=== PATIENT | male | born 1955 | race Caucasian/White ===

== ENCOUNTER 2016-11-05 14:10 | Inpatient (IN) | payer OTHER ==
--- NOTE | ~2016-11-05 | CO ---
Unit #: [id number] #: [id number] Patient: SIMON ARSHAD [id number] [address] [place], [place] [address] [id number] I MR#: [id number] NAME: SIMON ARSHAD. ROOM: 228 Age: 61 Sex: M Admission Date: 11/05/2016 : 1955 Attending Physician: Kathleen Pineda M.D. Primary Care Physician: Hosea Phelan M.D. CONSULTATION REPORT REASON FOR CONSULTATION Lower extremity cellulitis. HISTORY OF PRESENT ILLNESS This is a 61-year-old male that is known to our service for a similar presentation in July of 2016. The patient reports he was doing well up until about Thursday evening when he began with fever after his was shaving his foot and trying to take off skin. The patient reports the next morning he awoke with left lower extremity erythema, pain and difficulty with ambulation. The patient came to the hospital as he continued to feel poorly and he was admitted for cellulitis. The patient was started on vancomycin and Infectious Disease was asked to evaluate. PAST MEDICAL HISTORY Hypertension, iron deficiency anemia. He denies to me any other history including diabetes. The patient appears to have been seen in the past for pancytopenia and thrombocytopenia and his platelets are again low this admission. PAST SURGICAL HISTORY Exploratory lap secondary to small bowel obstruction, appendectomy. SOCIAL HISTORY The patient denies any alcohol or tobacco abuse. ALLERGIES Possible penicillin allergy; however, the patient has taken Keflex and Kefzol in the past without difficulty. MEDICATION The patient is currently on vancomycin. For other medications, please refer to patient's MAR. REVIEW OF SYSTEMS The patient reports fever and chills at home with development of left lower extremity pain, erythema, swelling and difficulty with ambulation. He denies any shortness of breath, chest pain, nausea, vomiting, diarrhea or any UTI signs or symptoms. PHYSICAL EXAMINATION GENERAL APPEARANCE: This no apparent distress male sitting in a chair comfortably. VITAL SIGNS: Temperature 97.7 with no documented fever this admission. Pulse 70. Blood pressure 143/55. Respiratory rate 16. Unit #: [id number] #: [id number] Patient: SIMON ARSHAD HEENT: His pupils are equal. NECK: Supple. CARDIOVASCULAR: S1, S2. Regular rate and rhythm. PULMONARY: Clear to auscultation bilaterally with no wheezes or rhonchi noted. ABDOMEN: Positive bowel sounds. Soft and nontender. EXTREMITIES: The left lower extremity shows erythema mainly on his foot and grande region. The patient has some dry skin noted both in his toes and web spaces as well as on his grande. He has no open ulcers noted. The patient does have positive edema and is shiny to appearance. DIAGNOSTIC STUDIES LABORATORY: BUN 19, creatinine 1.0, sodium 133, potassium 3.8, chloride 104, CO2 24, bilirubin 2.3, AST 52, ALT 13. CRP 3.4. INR 1.1. WBC count 4.1, hemoglobin 9.5, hematocrit 28.8, platelets 40. Blood cultures are currently negative to date. There is no diagnostic imaging. IMPRESSION This is a 61-year-old male with her current left lower extremity cellulitis. His last episode was in July 2016. The patient now returns for similar presentation of fever in the evening of Thursday night followed by erythema in the left foot and lower extremity with associated erythema and pain. This began after his "began shaving his dry skin off". At this time, we will treat his relapse of classic strep cellulitis and suspected source is dry scale feet and cracked skin. We will recommend to discontinue vancomycin. We will begin Kefzol as the patient has tolerated it in the past. We will given Lotrimin cream to place in between toes and web spaces and dry skin on his left lower extremity. We will check an ultrasound to the left lower extremity to rule out DVT. We will check a CBC in the a.m. We will have the nursing staff call with any positive blood cultures and we will elevate the left lower extremity while in bed. The patient's thrombocytopenia is to be evaluated by Hematology. We will continue to follow along with this patient. Thank you for allowing us to participate in the care of this patient. Further recommendations will follow pending patient's clinical course. Dictated by... Theresa Fatima A.P.R.N. for Pepe Mehta/marko TD: 11/06/2016 13:07 JOB #: [id number] CONSULTATION REPORT Page 1 of 1 X X CONSULTATION REPORT
--- NOTE | ~2016-11-05 | HP ---
Unit #: [id number] #: [id number] Patient: SIMON ARSHAD [id number] [address] [place], [place] [address] [id number] MR#: [id number] NAME: SIMON ARSHAD ROOM: 228 Age: 61 Sex: M Admission Date: 11/05/2016 : 1955 Attending Physician: Kathleen Pineda M.D. Primary Care Physician: Hosea Phelan M.D. HISTORY AND PHYSICAL CHIEF COMPLAINT Left lower extremity edema and swelling and redness. HISTORY OF PRESENT ILLNESS A 61-year-old morbidly obese male, who is known to us from previous admission. Patient's last admission was in July 2016. Patient went to see Dr. Angel for followup of his low platelet count and anemia and discussed about left lower extremity swelling. Patient was doing well until day before when his tried to clean his feet and was trying to take off the skin. Next morning, he started having chills and he woke up with redness of the lower extremity and swelling of the lower extremity. Patient was admitted to hospital for IV antibiotic. Patient does complain of chills and did not document temperature. He does not complain of any nausea, vomiting, or abdominal pain. Patient does have pain and difficulty with ambulation. PAST MEDICAL HISTORY 1. Hypertension. 2. Iron-deficiency anemia. 3. Thrombocytopenia. 4. Myelodysplasia. PAST SURGICAL HISTORY History of exploratory laparotomy, secondary to small bowel obstruction and appendectomy. SOCIAL HISTORY No history of smoking, alcohol, or drug abuse. ALLERGIES Codeine and penicillin. FAMILY HISTORY Unremarkable. HOME MEDICATIONS 1. Tenormin 25 mg p.o. twice a day. 2. Aldactone 25 mg daily. 3. Xanax 0.5 mg at bedtime. 4. Sparks 7.5/325 one tablet twice a day. REVIEW OF SYSTEMS No history of chest pain. No history of abdominal pain. No history of nausea, vomiting. No history of weakness, dizziness, or syncopal episode. Unit #: [id number] #: [id number] Patient: SIMON ARSHAD He does complain of dryness on his palm on both sides. No other complaints. PHYSICAL EXAMINATION GENERAL: Patient is sitting in the bed, was examined in room 228. VITAL SIGNS: Blood pressure is 143/55, respiratory rate 16, pulse 70, temperature 97.7, oxygen saturation 97%. HEENT: Head is normocephalic. Eye movements are normal. NECK: Supple. CHEST: Fair air entry. No additional sounds. CARDIOVASCULAR: S1, S2 positive. Regular rhythm. ABDOMEN: Obese, soft. No tenderness. EXTREMITIES: Left lower extremity has redness, most of the places is on the foot. A lot of dry skin is noted on both the feet and toes and webs. The patient does not have any ulcers or any drainage. Edema is positive. CENTRAL NERVOUS SYSTEM: Awake, alert, oriented x3. No focal neurological deficit. DIAGNOSTIC STUDIES LABORATORY: CBC shows WBC 4.1, hemoglobin 9.5, hematocrit 28.8, platelet count 40,000. C-reactive protein is elevated to 3.4. CMP shows sodium 133, potassium 3.8, chloride 104, BUN 19, creatinine 1. AST 52, albumin 2.9. ASSESSMENT Patient is being admitted to med/surg unit with: 1. Left lower extremity cellulitis. 2. Thrombocytopenia. 3. Anemia. 4. History of myelodysplasia. 5. Hypertension. 6. History of nonalcoholic steatohepatitis/cirrhosis. PLAN Admit to med/surg unit. IV antibiotic is being started. Infectious disease was consulted. Blood cultures have been done. Venous Doppler study is being done to rule out any deep venous thrombosis. Please refer to progress note for further orders. Plan of care has been discussed with patient. Home medications have been reviewed. Deep venous thrombosis prophylaxis with Lovenox is being done. Dictated by Pepe Garcia TD: 11/06/2016 17:19 JOB #: [id number] Unit #: [id number] #: [id number] Patient: SIMON ARSHAD HISTORY AND PHYSICAL Page 1 of 1 X Kathleen Pineda MD HISTORY AND PHYSICAL
--- NOTE | ~2016-11-05 | BMI ---
[facility] Nutrition Therapy DATE: 11/06/16 Patient: SIMON ARSHAD Physician: BEAU Address: [address] [place] [address] Room/Bed: [address] [place] [address], Zip: [place] [address] Admit Date: 11/05/16 Date of : [birth year] Height: 5 10 Weight: 337 153 HIGH BMI NOTE: DX: 61 Y.O. MALE ADMITTED FOR CELLULITIS ANTHROPOMETRICS: 5'10", WT: 337# (153.8 KG), BMI 48 DIET: REGULAR INTERVENTION: 1. REGULAR DIET RECOMMENDATIONS: 1. ADVANCE DIET TO HEALTHY HEART DIET IN ORDER TO PROMOTE GRADUAL WEIGHT LOSS TOWARDS A HEALTHY BMI (19.0-25.0) OR +/-10% IBW. RD WILL F/U PER PROTOCOL Respectfully, KELSEA PIERCE, MILLER KILN DRIED SALT BEENA LAI MS, RD, LD Food and Nutritional Services [facility] cc: client file
--- NOTE | ~2016-11-05 | US85 ---
[facility] A Service of [facility] RADIOLOGY TEXT RESULTS PATIENT: SIMON ARSHAD LOCATION: [facility] : 54 UNIT #: [id number] AGE: [address]: Kathleen Pineda MD SEX: M ORDER DR: [id number] [facility] [address] [facility] [place] [facility]. [place], [place] [address] [id number] I MR#: [id number] Acc #: [id number] NAME: SIMON ARSHAD : 1955 SEX: M STUDY DATE/TIME: 11/06/2016 14:56 UNIT: [facility] ROOM: [facility] STUDY DESCRIPTION: US LE Veins Unilat or Ltd Stdy Attending Physician: Kathleen Pineda M.D. Ordering Physician: Ed Hermelindo Guardado M.D. Primary Care Physician: Hosea Phelan M.D. MEDICAL IMAGING REPORT This report is preliminary unless electronic signature is present EXAM Left lower extremity venous ultrasound. HISTORY Left lower extremity swelling and redness and pain for 2 days. FINDINGS TECHNIQUE Venous ultrasound examination of the left lower extremity was performed using grayscale, spectral Doppler and color flow Doppler imaging. FINDINGS The examination is negative. There is no evidence of left lower extremity deep venous thrombus from the groin to the lower calf. Visualized greater saphenous vein is also patent. IMPRESSION Negative examination. No evidence of left lower extremity deep venous thrombosis. Dictated by... Leroy Ng M.D. THIS IS AN ELECTRONICALLY VERIFIED REPORT Leroy Ng M.D. at 11/06/2016 10:53 PM STEVIE/lj TD: 11/06/2016 17:50 JOB #: [id number] MEDICAL IMAGING REPORT [facility] A Service [facility] RADIOLOGY TEXT RESULTS PATIENT: SIMON ARSHAD LOCATION: [facility] : 54 UNIT #: [id number] AGE: [address]: Kathleen Pineda MD SEX: M ORDER DR: Page 1 of 1 COPY
--- NOTE | ~2016-11-05 | DS ---
Unit #: [id number] #: [id number] Patient: SIMON LACEY [id number] [address] [address] [id number] I MR#: [id number] NAME: SIMON LACEY ROOM: 228 Age: 61 Sex: M Admission Date: 11/05/2016 : 1955 Discharge Date: 11/08/2016 Attending Physician: Kathleen Pineda M.D. Primary Care Physician: Hosea Phelan M.D. DISCHARGE SUMMARY FINAL DIAGNOSES 1. Left lower extremity cellulitis. 2. Chronic thrombocytopenia. 3. Anemia. 4. Myelodysplasia. 5. Hypertension. 6. History of nonalcoholic steatohepatitis/cirrhosis. DISCHARGE MEDICATIONS 1. Keflex 500 mg p.o. q.i.d. until November 19, 2016. 2. Xanax 0.5 mg at bedtime. 3. Tenormin 25 mg twice a day. 4. [place] 7.5/325 one tablet b.i.d. 5. Aldactone 25 mg daily. 6. Clotrimazole (Lotrimin) cream apply topically to toes/web spaces and dry skin on left lower extremity twice a day. CONSULTATION DURING HOSPITALIZATION 1. Infectious disease, Dr. Samson. 2. Dr. Angel from hematology services. DIAGNOSTIC STUDIES LABORATORY: Lab workup on discharge: WBC 3.3, hemoglobin 10, hematocrit 30.7, and platelet count 48,000. Blood cultures x2 were no growth. C-reactive protein elevated to 3.1. CMP shows sodium 133, potassium 3.8, chloride 104, BUN 19, creatinine 1, calcium 7.8. AST 52. IMAGING: Venous Doppler study of the lower extremities: Negative for any lower extremity, DVT. HOSPITAL COURSE Mr. Lacey is a 61-year-old male who was admitted from Dr. Angel's office for left lower extremity swelling, redness, and pain. The patient was diagnosed with cellulitis. The patient was seen by Dr. Samson and by Dr. Angel. The patient received IV Keflex during hospitalization. His cellulitis is much improved. Wound care consult was also done and patient has some ointment to apply on his leg and feet. The patient is doing much better, is being discharged home in stable condition. PHYSICAL EXAMINATION VITAL SIGNS: On discharge: Blood pressure 153/72, respiratory rate 17, pulse 70, temperature 97.9, oxygen saturation is 100%. CHEST: Fair air entry. CARDIOVASCULAR: Regular rhythm. Unit #: [id number] #: [id number] Patient: SIMON LACEY EXTREMITIES: Left lower extremity: Much improved redness and swelling of the lower extremity. DISCHARGE INSTRUCTIONS 1. The patient is being discharged home in stable condition. 2. Followup primary care provider in one week. 3. Followup with Dr. Angel as scheduled. 4. Prescription for Keflex has been written. Dictated by... Pepe Garcia TD: 11/10/2016 12:42 JOB #: [id number] DISCHARGE SUMMARY Page 1 of 1 X Kathleen Pineda MD X DISCHARGE SUMMARY
[~2016-11-05 14:10] MED LIST: ACETAMINOPHEN PO; ADVIL200 M2 PO; ADVIL200 M3 PO; ALDACTONE PO; ALDACTONE100 MG PO; AMBIEN PO; ANTACID PO; ATENOLOL PO; ATENOLOL25 MG PO; AURALGAN EAR DR14 ML; BENADRYL25 M1 PO; CEFDINIR300 M2; CHILD'S BE12.5 MG/5 PO; CORGARD40 MG PO; CYANOCOBAL1000 MCG/M SUBQ; DAPTOMYCIN IV; FERAHEME510 MG/17 IV; FUROSEMIDE40 MG PO; HYDRALAZINE HCL25 MG PO; HYDROCODON-ACE1 EAC7 PO; IRON SUCROSE IV; IRON325 ( 651 PO; KEFLEX; KEFLEX PO; LASIX PO; LEVAQUIN PO; LOTREL 10/40 MG1 CAP PO; LOTRIMIN 1% CR30 GM EXT; LOVENOX120 MG/0.8 INJ; PERCOCET 5-3251 TAB PO; POTASSIUM GLUCO99 MG PO; POTASSIUM GLUCONATE PO; POTASSIUM99 M2 PO; PRILOSEC PO; PROTONIX PO; ST JOHN WORT PO; TEMAZEPAM PO; TENORMIN25 MG PO; TYLENOL325 M1 PO; VICODIN; VITAMIN B12-FO1 EACH PO; ZITHROMAX; ZYRTEC
[2016-11-05] MEDS ORDERED: XANAX0.5 MG PO (16:08)
[2016-11-05] MEDS ORDERED: NORCO 7.5-3251 EACH PO (16:08)
[2016-11-05 16:45] LABS: HEMATOCRIT 30.5 % (38.0-50.0); HEMOGLOBIN 10.1 gm/dL (13.0-16.0); MEAN CELL VOLUME 84.9 FL (83-96); MEAN CORPUSCULAR HGB CONC 32.9 g/dL (30-36); MEAN PLATELET VOLUME 9.1 FL (6.5-11.5); RED BLOOD COUNT 3.59 X10e (3.90-5.60); RED CELL DISTRIBUTION WIDTH 24.9 % (11.0-15.5); WHITE BLOOD COUNT 5.6 X10e3 (4.0-10.5)
[2016-11-05 17:07] LABS: ALBUMIN SERUM 3.1 g/dL (3.5-5.0); BUN/CREATININE RATIO 16.42; CALCIUM SERUM 8.1 mg/dL (8.4-10.2); CREATININE SERUM 1.4 mg/dL (0.6-1.4); GLOM FILT RATE Estimated 53.5 mL/min (>60); POTASSIUM 4.2 mmol/L (3.5-5.1); PROTEIN TOTAL SERUM 5.9 g/dL (6.0-8.3)
[2016-11-06 06:22] LABS: HEMATOCRIT 28.8 % (38.0-50.0); HEMOGLOBIN 9.5 gm/dL (13.0-16.0); MEAN CELL VOLUME 85.4 FL (83-96); MEAN CORPUSCULAR HEMOGLOBIN 28.2 PG (28-34); MEAN CORPUSCULAR HGB CONC 33.1 g/dL (30-36); MEAN PLATELET VOLUME 9.4 FL (6.5-11.5); RED BLOOD COUNT 3.38 X10e (3.90-5.60); WHITE BLOOD COUNT 4.1 X10e3 (4.0-10.5)
[2016-11-06 06:39] LABS: ALBUMIN SERUM 2.9 g/dL (3.5-5.0); BILIRUBIN,TOTAL 2.3 mg/dL (0.2-2.0); CALCIUM SERUM 7.8 mg/dL (8.4-10.2); GLOM FILT RATE Estimated 80.3 mL/min (>60); POTASSIUM 3.8 mmol/L (3.5-5.1); PROTEIN TOTAL SERUM 5.7 g/dL (6.0-8.3)
[2016-11-07 08:02] LABS: HEMATOCRIT 30.7 % (38.0-50.0); MEAN CELL VOLUME 85.5 FL (83-96); MEAN CORPUSCULAR HEMOGLOBIN 27.9 PG (28-34); MEAN CORPUSCULAR HGB CONC 32.6 g/dL (30-36); MEAN PLATELET VOLUME 9.1 FL (6.5-11.5); RED BLOOD COUNT 3.6 X10e (3.90-5.60); RED CELL DISTRIBUTION WIDTH 24.2 % (11.0-15.5); WHITE BLOOD COUNT 3.3 X10e3 (4.0-10.5)
[2016-11-08] MEDS ORDERED: KEFLEX500 M1 PO (15:21)
[2016-11-08] MEDS ORDERED: LOTRIMIN 1% CR30 GM TOP (15:24)
[2016-11-08] MEDS ORDERED: ATRAC-TAIN142 GM TOP (15:25)
[2016-11-08] MEDS ORDERED: TEMOVATE 0.05%15 G1 TOP (15:28)
[2016-11-28] MEDS ORDERED: FUROSEMIDE40 MG PO (09:31)
[2016-11-28] MEDS ORDERED: PANTOPRAZOLE SO40 MG PO (09:32)
[2016-11-28] MEDS ORDERED: POTASSIUM PO (09:32)
[2016-11-28] MEDS ORDERED: PHENERGAN25 MG PO (09:33)
[2016-11-28] MEDS ORDERED: CYANOCOBAL1000 MCG/M INJ (09:43)
== END 2016-11-08 16:08 | disposition home or self-care (01) | DRG 603 ==
LOC: C2A 14:10
PROVIDERS: Nurse Practitioner Family; Physician Assistant Medical
DX: L03.116 Cellulitis of left lower limb (principal); D84.9 Immunodeficiency, unspecified; D61.818 Other pancytopenia; D69.6 Thrombocytopenia, unspecified; Z68.41 Body mass index [BMI] 40.0-44.9, adult; D50.9 Iron deficiency anemia, unspecified; D46.9 Myelodysplastic syndrome, unspecified; I10 Essential (primary) hypertension; K74.60 Unspecified cirrhosis of liver; Z88.5 Allergy status to narcotic agent; Z88.0 Allergy status to penicillin; K75.81 Nonalcoholic steatohepatitis (NASH); E66.9 Obesity, unspecified
CPT/HCPCS: 80053; 85027; 85652; 86140; 87040; 93971; J0690; J1650; J3370

== ENCOUNTER → 2016-11-28 | Outpatient (CLI) | payer OTHER ==
[~2016-11-28] MED LIST changes: +ATRAC-TAIN142 GM TOP; +CYANOCOBAL1000 MCG/M INJ; +KEFLEX500 M1 PO; +LOTRIMIN 1% CR30 GM TOP; +NORCO 7.5-3251 EACH PO; +PANTOPRAZOLE SO40 MG PO; +PHENERGAN25 MG PO; +POTASSIUM PO; +TEMOVATE 0.05%15 G1 TOP; +XANAX0.5 MG PO
--- NOTE | ~2016-11-28 | CR63 ---
[facility] A Service of [facility] RADIOLOGY TEXT RESULTS PATIENT: SIMON ARSHAD LOCATION: [facility] : 54 UNIT #: [id number] AGE: [address]: Juan Antonio Alcantar MD SEX: M ORDER DR: [id number] [facility] [address] [place], [place] [address] [id number] O MR#: [id number] Acc #: [id number] NAME: SIMON ARSHAD : 1955 SEX: M STUDY DATE/TIME: 11/28/2016 7:56 UNIT: [facility] ROOM: STUDY DESCRIPTION: CR Chest 2 View Attending Physician: Juan Antonio Alcantar M.D. Referring Physician: Juan Antonio Alcantar M.D. Ordering Physician: Juan Antonio Alcantar M.D. Primary Care Physician: Hosea Phelan M.D. MEDICAL IMAGING REPORT This report is preliminary unless electronic signature is present EXAM Chest PA and lateral 11/28/2016 COMPARISON 09/01/2013. HISTORY Preop Lap-Band surgery. FINDINGS PA and lateral views are obtained. Heart size is within normal limits. Vascular pattern is normal and the lungs are clear. CONCLUSION Stable chest. No active disease. No change from August 2013. Dictated by... Juan Antonio Del Castillo M.D. THIS IS AN ELECTRONICALLY VERIFIED REPORT Juan Antonio Del Castillo M.D. at 11/28/2016 3:12 PM VERONICA/aj TD: 11/28/2016 14:24 JOB #: [id number] MEDICAL IMAGING REPORT Page 1 of 1 COPY
--- NOTE | ~2016-11-28 | CR97 ---
[facility] A Service of [facility] RADIOLOGY TEXT RESULTS PATIENT: SIMON ARSHAD LOCATION: [facility] : 54 UNIT #: [id number] AGE: [address]: Juan Antonio Alcantar MD SEX: M ORDER DR: [id number] [facility] [address]. [place], [place] [address] [id number] O MR#: [id number] Acc #: [id number] NAME: SIMON ARSHAD : 1955 SEX: M STUDY DATE/TIME: 11/28/2016 8:11 UNIT: [facility] ROOM: STUDY DESCRIPTION: CR Esophagram Attending Physician: Juan Antonio Alcantar M.D. Referring Physician: Juan Antonio Alcantar M.D. Ordering Physician: Juan Antonio Alcantar M.D. Primary Care Physician: Hosea Phelan M.D. MEDICAL IMAGING REPORT This report is preliminary unless electronic signature is present EXAM Esophagogram, 11/28/2016. INDICATIONS Preoperative exam for gastric band placement. FINDINGS Single contrast esophagogram was performed. Twenty-five images were obtained. Fluoro time was 1 minute. The esophagus demonstrates dysmotility with tertiary contractions noted after multiple swallows. No rings or strictures are identified. There is no definite hiatal hernia. IMPRESSION Esophageal dysmotility, otherwise, negative, single contrast esophagogram. Dictated by... Jerardo Macedo Jr., M.D. THIS IS AN ELECTRONICALLY VERIFIED REPORT Jerardo Macedo Jr., M.D. at 12/01/2016 5:53 AM NAPOLEON/anthony TD: 11/28/2016 19:43 JOB #: [id number] MEDICAL IMAGING REPORT Page 1 of 1 COPY
--- NOTE | ~2016-11-28 | EKG ---
PATIENT: SIMON ARSHAD UNIT #: [id number] Ventricular Rate: 82 BPM Atrial Rate: 82 BPM P-R Interval: 224 ms QRS Duration: 96 ms Q-T Interval: 380 ms QTC Calculation(Bezet): 443 ms P Barnwell: 13 degrees Calculated R Barnwell: 28 degrees Calculated T Barnwell: 30 degrees Diagnosis Line: Sinus rhythm with 1st degree A-V block Diagnosis Line: Otherwise normal ECG Diagnosis Line: When compared with ECG of 05-MAR-2016 09:26, Diagnosis Line: No significant change was found Diagnosis Line: Confirmed by ISIDORO CHI MD ([id number]) on 12/03/2016 Diagnosis Line: 2:32:07 PM INTERPRETING MD: ALON MARTINEZ
[2016-11-28 10:14] LABS: BILIRUBIN,TOTAL 1.9 mg/dL (0.2-2.0); CALCIUM SERUM 8.9 mg/dL (8.4-10.2); CREATININE SERUM 0.8 mg/dL (0.6-1.4); GLOM FILT RATE Estimated 95.8 mL/min (>60); POTASSIUM 4.1 mmol/L (3.5-5.1); PROTEIN TOTAL SERUM 5.9 g/dL (6.0-8.3)
[2016-11-28 10:27] LABS: HEMATOCRIT 27.7 % (38.0-50.0); HEMOGLOBIN 8.8 gm/dL (13.0-16.0); MEAN CELL VOLUME 84.8 FL (83-96); MEAN CORPUSCULAR HGB CONC 31.8 g/dL (30-36); MEAN PLATELET VOLUME 9.1 FL (6.5-11.5); RED BLOOD COUNT 3.27 X10e (3.90-5.60); RED CELL DISTRIBUTION WIDTH 19.2 % (11.0-15.5); WHITE BLOOD COUNT 2.2 X10e3 (4.0-10.5)
== END | disposition home or self-care (01) ==
LOC: CRAD 07:46 → CAMB 09:00
PROVIDERS: Surgery
DX: Z01.818 Encounter for other preprocedural examination (principal); K22.4 Dyskinesia of esophagus
CPT/HCPCS: 36415; 71020; 74220; 80053; 80061; 84443; 85027; 93005

== ENCOUNTER → 2016-12-10 | Day surgery (SDC) | payer OTHER ==
--- NOTE | ~2016-12-10 | OR ---
Unit #: [id number] #: [id number] Patient: SIMON ARSHAD [id number] [address] [address] [id number] O MR#: [id number] NAME: SIMON ARSHAD ROOM: Date of Procedure: 12/10/2016 Admission Date: 12/10/2016 Surgeon: Juan Antonio Alcantar M.D. : 1955 Attending Physician: Juan Antonio Alcantar M.D. Referring Physician: Juan Antonio Alcantar M.D. Primary Care Physician: Hosea Phelan M.D. OPERATIVE REPORT PREOPERATIVE DIAGNOSIS Chronic morbid obesity, BMI 48. POSTOPERATIVE DIAGNOSES 1. Chronic morbid obesity, BMI 48. 2. Advanced cirrhosis of the liver with mild ascites. PROCEDURE PERFORMED Laparoscopic adjustable gastric band placement. ASSISTANT Harley Cuenca M.D. ANESTHESIA General anesthesia. ESTIMATED BLOOD LOSS Minimal. IV FLUIDS 800 crystalloid. COMPLICATIONS None. INDICATIONS FOR PROCEDURE The patient is a 61-year-old gentleman with chronic morbid obesity. DESCRIPTION OF PROCEDURE The patient was taken to the operating room and placed in a supine position. General endotracheal anesthesia was induced. The abdomen was then prepped and draped. A 3 cm incision was then made left of the midline. A 10 mm Visiport was then placed intraabdominal under direct vision. The abdomen was inflated to 15 mm with CO2. The patient was then placed in a steep reversed Trendelenburg. General inspection of the abdomen revealed no gross abnormality with visible viscera. We then made a small incision in the subxiphoid region. A Pedro liver retractor was then placed intraabdominal and used to retract the left lobe of the liver upward to expose the gastroesophageal junction. I then placed a 5 mm and 10 mm port in the left subcostal region under direct vision. I also placed a 5 mm port in the right upper quadrant position. The stomach was then retracted medial. Using electrocautery, I scored an area over the Unit #: [id number] #: [id number] Patient: SIMON ARSHAD origin of the left adilene at the angle of His. The stomach was then retracted lateral. I took down the hepatogastric ligament with Bovie electric cautery. This exposed the junction of the right and left adilene. Using blunt dissection, I created a retrogastric tunnel from this point to the angle of His. The band was then placed intraabdominal through the 10 mm port site. This was then brought through the retrogastric tunnel in pars flaccida technique. The band was then closed over the anterior stomach under the band to form a 15 mL to 20 mL anterior gastric pouch. The fundus was then secured to the anterior pouch slippage of the stomach under the band using two interrupted 0-Ethibond sutures. A third Ethibond suture was then used as a gathering stitch to secure the anterior stomach to remaining fundus. The tubing was then brought out through the 10 mm port site. All ports and the Pedro liver retractor were then removed under direct vision with no evidence of abdominal wall hemorrhage. A subcutaneous pocket was then created at the 10 mm port site. The tubing was then connected to the injectable port. The port was then placed into the subcutaneous pocket and secured to the anterior fascia with 0-Ethibond sutures. The remaining portion of the tubing was then threaded into the abdominal cavity. All wounds were then anesthetized with 0.25% Marcaine. The skin incisions were closed with 4-0 Vicryl. The patient tolerated the procedure well and was sent to the recovery room in good condition. Dictated by... Pepe Lim/eric TD: 12/11/2016 05:54 JOB #: [id number] OPERATIVE REPORT Page 1 of 1 X Juan Antonio Alcantar MD X PROCEDURE OPERATIVE NOTE
--- NOTE | ~2016-12-10 | CR7 ---
[facility] A Service [facility] RADIOLOGY TEXT RESULTS PATIENT: SIMON ARSHAD LOCATION: [facility] : 54 UNIT #: [id number] AGE: [address]: Juan Antonio Alcantar MD SEX: M ORDER DR: [id number] [facility] [address] [place], [place] [address] [id number] O MR#: [id number] Acc #: [id number] NAME: SIMON ARSHAD : 1955 SEX: M STUDY DATE/TIME: 12/10/2016 11:47 UNIT: [facility] ROOM: STUDY DESCRIPTION: CR Abdomen Single AP View Attending Physician: Juan Antonio Alcantar M.D. Referring Physician: Juan Antonio Alcantar M.D. Ordering Physician: Juan Antonio Alcantar M.D. Primary Care Physician: Hosea Phelan M.D. MEDICAL IMAGING REPORT This report is preliminary unless electronic signature is present EXAM Portable KUB HISTORY Postop lap-band surgery. TECHNIQUE Single view of the abdomen was obtained. FINDINGS Postoperative changes of lap-band surgery are noted. The angle of the band with respect to the long axis of the spine is 63 degrees. No postoperative complications noted. IMPRESSION Satisfactory postoperative appearance STAT * RESULT Dictated by... Jerardo Arnold M.D. THIS IS AN ELECTRONICALLY VERIFIED REPORT Jerardo Arnold M.D. at 12/10/2016 4:40 PM RLF/blaine TD: 12/10/2016 12:33 JOB #: [id number] [facility] A Service [facility] RADIOLOGY TEXT RESULTS PATIENT: SIMON ARSHAD LOCATION: [facility] : 54 UNIT #: [id number] AGE: [address]: Juan Antonio Alcantar MD SEX: M ORDER DR: MEDICAL IMAGING REPORT Page 1 of 1 COPY
[2016-12-10 08:10] LABS: HEMATOCRIT 27.9 % (38.0-50.0); MEAN CELL VOLUME 82.5 FL (83-96); MEAN CORPUSCULAR HEMOGLOBIN 26.6 PG (28-34); MEAN CORPUSCULAR HGB CONC 32.2 g/dL (30-36); MEAN PLATELET VOLUME 9.1 FL (6.5-11.5); RED BLOOD COUNT 3.37 X10e (3.90-5.60); RED CELL DISTRIBUTION WIDTH 17.6 % (11.0-15.5); WHITE BLOOD COUNT 2.8 X10e3 (4.0-10.5)
== END | disposition home or self-care (01) ==
LOC: CSUR 07:34
PROVIDERS: Surgery
PROC: 0DV64CZ Restriction of Stomach with Extraluminal Device, Percutaneous Endoscopic Approach (ICD-10-PCS; principal; 2016-12-10 11:00)
DX: E66.01 Morbid (severe) obesity due to excess calories (principal); Z68.42 Body mass index [BMI] 45.0-49.9, adult; K74.60 Unspecified cirrhosis of liver; R18.8 Other ascites; I10 Essential (primary) hypertension; K21.9 Gastro-esophageal reflux disease without esophagitis; D69.6 Thrombocytopenia, unspecified; D64.9 Anemia, unspecified; R06.83 Snoring; M19.90 Unspecified osteoarthritis, unspecified site; L03.116 Cellulitis of left lower limb; Z79.899 Other long term (current) drug therapy; Z86.79 Personal history of other diseases of the circulatory system; Z88.5 Allergy status to narcotic agent; Z88.0 Allergy status to penicillin; Z88.8 Allergy status to other drugs, medicaments and biological substances; Z98.890 Other specified postprocedural states
CPT/HCPCS: 74000; 85027; 86900; 86901; C1781; J0330; J1650; J1885; J2250; J2405; J2710; J3010; J3370

== ENCOUNTER 2016-12-11 02:32 | Emergency (ER) | payer OTHER ==
--- NOTE | ~2016-12-11 | DS ---
Unit #: [id number] #: [id number] Patient: SIMON ARSHAD [id number] [facility]. [address] [place], [place] [address] [id number] MR#: [id number] NAME: SIMON ARSHAD ROOM: Age: 61 Sex: M Admission Date: 12/11/2016 : 1955 Discharge Date: 12/11/2016 Attending Physician: Meche Carlson M.D. Primary Care Physician: Hosea Phelan M.D. DISCHARGE SUMMARY BRIEF SUMMARY The patient is a 61-year-old white male who underwent Lap-Banding yesterday by Dr. Alcantar and was doing well until he began bleeding from his port site incision. He continued to bleed, and he presented to the emergency room with this complaint. He has had known thrombocytopenia and apparently was given platelets. His hemoglobin in the emergency room is 8, and his platelets are in the range of 84,000. At present his bleeding is stopped. Wound is clean. Steri-Strips have been replaced, and there is no evidence of any significant hematoma. His abdomen is soft and moderately tender as expected immediately postop. IMPRESSION The patient had bleeding from his port site. It is presently stopped. PLAN/INSTRUCTIONS The plan will be to discharge him home. If he does develop some further bleeding, he will need to put a pressure dressing on, and he will be given supplies for this. He has been given instructions on following up with Dr. Alcantar in approximately 2 weeks. He has also been given a prescription for [place] 10 mg/325 mg 1 or 2 p.o. q.4-6 hours p.r.n. pain. He will resume his home medications and a liquid diet as instructed. Dictated by... Gilmar Villela Jr., M.D. LOYD/wilda TD: 12/11/2016 07:44 JOB #: [id number] DISCHARGE SUMMARY Page 1 of 1 X Gilmar Villela MD X DISCHARGE SUMMARY
[2016-12-11 03:56] LABS: BASOPHIL% 0.5 % (0-2.5); EOSINOPHIL# 0.1 X10e3 (0-0.7); EOSINOPHIL% 1.7 % (0.0-7.0); HEMATOCRIT 25.4 % (38.0-50.0); LYMPHOCYTE# 0.6 X10e3 (1.0-3.5); LYMPHOCYTE% 7.6 % (17.0-45.0); MEAN CELL VOLUME 84.2 FL (83-96); MEAN CORPUSCULAR HEMOGLOBIN 26.6 PG (28-34); MEAN CORPUSCULAR HGB CONC 31.6 g/dL (30-36); MEAN PLATELET VOLUME 9.6 FL (6.5-11.5); MONOCYTE# 0.7 X10e3 (0-1.0); MONOCYTE% 9.2 % (3.0-12.0); NEUTROPHIL# 6.5 X10e3 (1.5-7.1); RED BLOOD COUNT 3.02 X10e (3.90-5.60); RED CELL DISTRIBUTION WIDTH 17.3 % (11.0-15.5)
[2016-12-11 04:18] LABS: DIFF IND YES; PLATELET COUNT 84 X10e3 (140-420); WHITE BLOOD COUNT 8.1 X10e3 (4.0-10.5)
[2016-12-11 04:20] LABS: PLATELET ESTIMATE DECREASED (NORMAL)
[2016-12-11 04:21] LABS: ANISOCYTOSIS MOD
[2016-12-11 04:22] LABS: HYPERSEGMENTED POLYS PRESENT
== END 2016-12-11 07:17 | disposition home or self-care (01) ==
LOC: CED 02:32
PROVIDERS: Emergency Medicine
DX: K91.840 Postprocedural hemorrhage of a digestive system organ or structure following a digestive system procedure (principal); D64.9 Anemia, unspecified; Z88.0 Allergy status to penicillin; Z88.5 Allergy status to narcotic agent; Z88.8 Allergy status to other drugs, medicaments and biological substances; Z79.899 Other long term (current) drug therapy
CPT/HCPCS: 85025; 99283

== ENCOUNTER 2016-12-11 17:17 | Emergency (ER) | payer OTHER | END 2016-12-11 20:45 | disposition home or self-care (01) | LOC: CED 17:17 | DX: K91.840 Postprocedural hemorrhage of a digestive system organ or structure following a digestive system procedure (principal); D64.9 Anemia, unspecified; K21.9 Gastro-esophageal reflux disease without esophagitis; Z79.899 Other long term (current) drug therapy; Z88.0 Allergy status to penicillin; Z88.5 Allergy status to narcotic agent; Z88.8 Allergy status to other drugs, medicaments and biological substances | CPT/HCPCS: 99283 ==

== ENCOUNTER → 2016-12-12 | Outpatient (CLI) | payer OTHER ==
[2016-12-12 12:20] LABS: INR 1.3; PARTIAL THROMBOPLASTIN TIME 28.7 SECONDS (23.5-31.3); PROTHROMBIN TIME (PATIENT) 13.8 SECONDS (10.0-11.7)
== END | disposition home or self-care (01) ==
LOC: CLAB 11:30
PROVIDERS: Surgery
DX: L76.22 Postprocedural hemorrhage of skin and subcutaneous tissue following other procedure (principal)
CPT/HCPCS: 36415; 85610; 85730